=== PATIENT | male | born 1970 | race Two or more races ===

== ENCOUNTER 2017-10-01 21:14 | Emergency (ER) | payer BC, MEDICAID ==
[~2017-10-01] VITALS: Ht 180.3 cm; Wt 115.7 kg
[2017-10-01 21:21] VITALS: BP 164/95
[2017-10-01] MEDS ORDERED: IBUPROFEN 800 MG TAB PO ONE (21:45)
== END 2017-10-01 23:17 | disposition home or self-care (01) ==
LOC: ER 21:14
DX: M25.561 Pain in right knee (principal); M54.5 Low back pain; M25.512 Pain in left shoulder; V43.52XA Car driver injured in collision with other type car in traffic accident, initial encounter; Y93.89 Activity, other specified; Y99.8 Other external cause status; Y92.410 Unspecified street and highway as the place of occurrence of the external cause
CPT/HCPCS: 73562

== ENCOUNTER 2023-11-20 17:42 | Emergency (ER) | payer BC ==
[~2023-11-20] VITALS: Ht 180.3 cm; Wt 120.7 kg
[2023-11-20 18:37] LABS: Basophils # (auto) 0 10 ^3/uL (0-0.2); Basophils % (auto) 0.3 % (0.0-2.0); Eosinophils # (auto) 0 10 ^3/uL (0-0.8); Eosinophils % (auto) 0.5 % (0.0-7.0); Hematocrit 46.7 % (41.0-53.0); Hemoglobin 16.6 g/dL (13.5-17.5); Lymphocytes # (auto) 2.3 10 ^3/uL (0.4-5.4); Lymphocytes % (auto) 32.2 % (10.0-50.0); Mean Corpuscular Hemoglobin 31.1 pg (28.0-32.0); Mean Corpuscular Hgb Conc. 35.7 g/dL (32.0-36.0); Mean Corpuscular Volume 87.2 fL (80.0-100.0); Monocytes # (auto) 0.5 10 ^3/uL (0-1.3); Monocytes % (auto) 7.2 % (0.0-12.0); Neutrophils # (auto) 4.2 10 ^3/uL (1.6-8.6); Neutrophils % (auto) 59.8 % (37.0-80.0); Nucleated Red Blood Cells % 0.5 %; Red Blood Cells 5.35 10^6/uL (4.5-5.90); Red Cell Distribution Width 13.2 % (11.8-14.3); White Blood Cell 7.1 10^3/uL (4.4-10.8)
[2023-11-20 18:48] VITALS: TEMP 98.4
[2023-11-20 18:54] LABS: Alanine Aminotransferase 56 U/L (7-40); Alkaline Phosphatase 63 U/L (46-116); Anion Gap 9 (5-15); Aspartate Aminotransferase 28 U/L (13-40); BUN/Creatinine Ratio 15.8 (10.0-20.0); Bilirubin, Total 1.1 mg/dL (0.2-1.0); Blood Urea Nitrogen 16 mg/dL (9-23); Calcium 10.1 mg/dL (8.7-10.4); Carbon Dioxide 27 mmol/L (20-30); Chloride 103 mmol/L (98-107); Glucose 87 mg/dL (74-106); Potassium 3.9 mmol/L (3.5-5.1); Sodium 139 mmol/L (136-145); Total Protein 8.1 g/dL (5.7-8.2)
[2023-11-20 19:03] LABS: INR 1.13 (0.9-1.15); Partial Thromboplastin Time 29.1 SEC (24.5-34.5); Prothrombin Time 11.9 sec (9.3-11.8)
[2023-11-20 22:00] VITALS: BP 130/79; PULSE 71; RESP 16; O2SAT 95
== END 2023-11-20 22:01 | disposition home or self-care (01) ==
LOC: ER 17:42
DX: K21.9 Gastro-esophageal reflux disease without esophagitis (principal)
CPT/HCPCS: 36415; 71045; 80053; 84484; 85025; 85610; 85730; 93005